=== PATIENT | female | born 1965 | race Caucasian/White ===

== ENCOUNTER → 2023-02-14 | Outpatient (CLI) | payer BC, SELFPAY | END | disposition home or self-care (01) | PROVIDERS: PCP Internal Medicine; Referring Provider Specialist; Visit Provider Specialist | DX: L50.1 Idiopathic urticaria (principal); Z91.038 Other insect allergy status | CPT/HCPCS: 36415; 83520 ==

== ENCOUNTER → 2023-03-02 | Outpatient (CLI) | payer BC, SELFPAY ==
--- NOTE | 2023-03-02 09:45 | BI_ITS ---
MAMMOGRAPHY - BILATERAL SCREENING REASON FOR EXAM: Female, 58 years old. Routine annual screening examination. PERTINENT HISTORY: Non-contributory. TECHNIQUE: Digital bilateral breast dayday (3D mammographic acquisition) in the CC and MLO projections. 2-D mediolateral oblique (MLO) and craniocaudad (CC) views of both breasts were obtained. CAD: Full Field Digital Mammography with Computer Added Detection was performed. COMPARISON: Comparison is made with prior outside examination dated February 22, 2022. FINDINGS: Breast Composition: The breasts are heterogeneously dense, which may obscure small masses. There are no dominant masses or suspicious calcifications. No other significant abnormalities are identified. There has been no significant change since the prior study. BI/SCRN MAMM (CAD)W/DAYDAY BILAT IMPRESSION: Stable bilateral screening mammogram. Yearly follow-up mammogram recommended. (A) ASSESSMENT CATEGORY: BIRADS Category 1: Negative. A letter regarding these results will be sent to the patient by the facility within 30 days. Approximately 10% of breast cancers are not detected by mammography. A normal mammogram should not delay biopsy of a clinically suspicious abnormality. [id number] Electronically Signed: Fernando Liu MD at 12:46 EDT ,
== END | disposition home or self-care (01) ==
LOC: OPBI 09:44
PROVIDERS: PCP Internal Medicine; Referring Provider Internal Medicine; Visit Provider Internal Medicine
DX: Z12.31 Encounter for screening mammogram for malignant neoplasm of breast (principal)
CPT/HCPCS: 77063; 77067

== ENCOUNTER 2023-03-07 13:00 | Outpatient (RCR) | payer BC, SELFPAY ==
--- NOTE | 2023-02-08 13:45 | HP.PTEVAL ---
Patient's Visit Information DIRK VAUGHN is a 57 year old F referred to Physical Therapy by Dr. Molly Mcallister DO with a diagnosis of RECURRENT R ANKLE SPRAIN. Date of Evaluation: 02/08/23 Physical Therapist: Tamara Crook PT, Cert MDT - Visit Plan Frequency: 2-3x /Week Duration: 4-6 Weeks Plan: R ANKLE US X 3-6, BALANCE/PROPRIOCEPTIVE TRAINING. R LE ROM, STRETCHING AND STRENGTHENING. - Subjective Work/Leisure: UNEMPLOYEED. PLANNING TO RETIRE. RECENTLY MOVED HERE FROM [place]. Disability: NO. Present symptoms: PAIN OUTSIDE OF R ANKLE AND LOWER LEG. NO NUMBNESS OR TINGLING. WEAKNESS. Present since: MARCH 2022 FIRST SPRAIN. NOV 2022 RE-HURT IT. Pain Scale: WORST 5/10, LEAST 0/10. Currently: 0/10. Is it getting better, worse or staying the same: GETTING WORSE. Commenced as a result of: FALL IN MARCH 2022, NOV - A LOT OF WALKING [place]. Worse: WALKING. Better: NWB. Disturbed sleep: NO. Previous history/Previous treatment: ORTHO CONSULT AFTER FALL - HAD X-RAY - NORMAL, NWB X 6 WKS THEN GIVEN HEP FOR STRENGTHENING. Treatment this episode: REST. FOOT DOCTOR CONSULT - X-RAYS WERE NORMAL. PRESCRIBED MALOXACAM BUT CAN'T TAKE DUE TO ALLERGY. PROPOSAL ANALYST ROMMEL'T PENDING TODAY. PCP ORDERED PT (DR. MCALLISTER). Gait: 2-4 STEPS ARE OK THEN PAIN SETS IN AND THEN ROLLS ANKLE IN TO MAKE IT FEEL BETTER TO WALK. WEARING OTC BRACE AND BROUGHT SEVERAL BRACES GIVEN BY ORTHO THAT SHE IS TESTING OUT. PMH/Recent major surgery: HYPOTHYROIDISM. - Objective THIS PATIENT AMBULATES INDEP'LY INTO PT WITHOUT ANY ASSITIVE DEVICES MILDLY LIMPING ON R LE AND WEARING OTC R ANKLE BRACE. NEIL LE LIGHT TOUCH SENSATION IS GROSSLY INTACT AND SYMMETRICAL. NO BRUISING, TENDERNESS OR SWELLING NOTED THROUGHOUT R FOOT OR ANKLE. LUMBAR ROM WFL WTIH NE ON L ANKLE PAIN. FAIR CORE STRENGTH. MILD NEIL HS AND GASTROC SOLEUS TIGHTNESS. R ANKLE ROM AND STRENGTH WFL AND TESTING DOES NOT PROVOKE PAIN. GOOD RLE STRENGTH. GOOD SLS ABILITY L LE BUT GREAT DIFFICULTY WITHOUT UE SUPPORT ON R LE. R LE SLS TESTING DOES NOT PROVOKE PAIN. WALKING IS THE ONLY ACTIVITY THAT PROVOKES PAIN. PATIENT IS MOST PLEASANT AND A GOOD CANDIDATE TO TRY PT FOR RIGHT LE ROM, STRETCHING, STRENGTHENING AND BALANCE TRAINING BUT FURTHER TESTING/IMAGING MIGHT BE NEEDED. RECOMMEND TRYING EX ON [place] BUT MAY NEEDED TO CONSIDER AQUATIC THERAPY FOR REDUCED WEIGHT BEARING ENVIRONMENT. MAY ALSO BENEFIT FROM US TO PAINFUL AREAS. - Balance/Special Test Scores Lower Extremity Functional Score: 45 - Goals Goal 1:: PATIENT WILL BE ABLE TO WALK UNLIMITED DISTANCES ON ALL SURFACES WITHOUT R ANKLE PAIN. Goal Time Frame: 4-6 Weeks Goal 2:: PATIENT WILL BE ABLE TO SLS ON R LE WITH GOOD BALANCE/CONTROL X GREATER THAN 10 SEC. Goal Time Frame: 4-6 Weeks Goal 3:: PATIENT WILL BE INDEP WITH A HEP FOR CONTINUED IMPROVEMENT ONCE FORMAL PHYSICAL THERPAPY CONCLUDES. - Anticipated Interventions Patient/Client Instruction: Educate patient on: Condition, Plan of Care, Risk Factors For the Purpose of:: To improve self management Therapeutic Exercise to Include: Strength training, Balance training, Flexibilty training, Gait and locomotor training, Neuromotor development, In an aquatic setting For the Purpose of:: To decrease pain, To increase ROM, To improve muscle performance and motor function, To increase tolerance to activity/condition/position, To improve ability of physical actions for home/community/work/leisure, To improve gait and locomotor functions Ultrasound (thermal/non thermal): Yes For the Purpose of:: To decrease pain, To improve nutrient delivery to tissue Thank you for the opportunity to evaluate your patient. For Medicare and Medicare HMO plans, please review the plan of care and approve it. It will need to be FAXED BACK to us at [phone] for Medicare purposes. For Medicare only, by signing this I certify the plan of care. Please let me know if there are questions or concerns regarding this plan of care. Physician Signature: Date:
--- NOTE | 2023-03-07 13:20 | HP.PTDCSUM_ITS ---
It has been my pleasure to treat DIRK VAUGHN referred by Dr. Molly Agrawal DO, with the diagnosis of RECURRENT R ANKLE SPRAIN for a total of 10 visit(s). Discharge Date: 03/07/23 Please see the following information for a summary of their discharge status. Subjective: PATIENT REPORTS SHE IS THRILLED WITH HOW SHE IS DOING. STATES SHE WAS SCARED TO SHE WAS GOING TO HAVE TO HAVE SURGERY BEFORE DOING PT. PATIENT DENIES ANY LIMITATIONS BUT IS EASING INTO THINGS TO TRY TO AVOID RE- INJURY. Right Ankle Pain Intensity (Out of 10): 1 % Improvement: 90 Objective/Function: PATIENT WAS SEEN TODAY FOR RE-ASSESSMENT OF PROGRESS TOWARD THE SET PT GOALS AND THE NEED FOR FURTHER PHYSICAL THERAPY VS READINESS FOR DISCHARGE. 90% improved subjectively. Just feels as though her balance and strength is still a little limited. Feels as though she can continue doing exercises independently to get back to 100%. UPON EXAM TODAY PATIENT DEMO'S FULL ROM AND STRENGTH OF R ANKLE WITHOUT C/O PAIN AND CAN EASILY SLS > 15 SEC ON R LE WITH GOOD BALANCE. SHE IS APPROPRIATE FOR AND AGREEABLE TO D/C. Goal 1:: PATIENT WILL BE ABLE TO WALK UNLIMITED DISTANCES ON ALL SURFACES WITHOUT R ANKLE PAIN. Goal Progress: Goal Met Goal 2:: PATIENT WILL BE ABLE TO SLS ON R LE WITH GOOD BALANCE/CONTROL X GREATER THAN 10 SEC. Goal Progress: Goal Met Goal 3:: PATIENT WILL BE INDEP WITH A HEP FOR CONTINUED IMPROVEMENT ONCE FORMAL PHYSICAL THERPAPY CONCLUDES. Goal Progress: Goal Met Plan: D/C TO INDEP HEP. PATIENT AGREEABLE. If there are questions or concerns regarding this patient's physical therapy, please feel free to call me at [phone]. Thank you for the referral of this patient. Sincerely, Tmaara Crook, PT, Cert MDT Balance/Gait/Functional tests - Balance/Special Test Scores Lower Extremity Functional Score: 80
== END 2023-03-07 14:21 | disposition home or self-care (01) ==
LOC: PT 13:00
PROVIDERS: PCP Internal Medicine; Referring Provider Internal Medicine; Visit Provider Internal Medicine
DX: S93.401D Sprain of unspecified ligament of right ankle, subsequent encounter (principal)
CPT/HCPCS: 97035; 97110; 97161; 97164; 97530

== ENCOUNTER → 2023-03-07 | Outpatient (CLI) | payer BC, SELFPAY ==
[2023-03-09 10:08] LABS: HPV APTIMA, High Risk Negative (Negative)
== END | disposition home or self-care (01) ==
LOC: WOBLAB 12:00
PROVIDERS: PCP Internal Medicine; Visit Provider Nurse Practitioner Women's Health
DX: Z12.4 Encounter for screening for malignant neoplasm of cervix (principal)
CPT/HCPCS: 87624; 88175; G0145